=== PATIENT | male | born 1935 | race Caucasian/White ===

== ENCOUNTER 2017-03-05 15:45 | Emergency (ER) | payer MEDICARE ==
[~2017-03-05] VITALS: Ht 170.2 cm; Wt 63.5 kg
[~2017-03-05 15:45] MED LIST: ASPI325 PO; ASPI81CH PO; ASPI81EC PO; ATOR10 PO; CEPH250A PO; CEPH500 PO; CLOP75 PO; METO25ER PO; NIAC500 PO; Norco 5-325 Ta1 EACH PO; Norco 7.5-3251 EACH PO; Percocet 5-3251 EACH PO; Prednisone20 MG PO; RAMI2.5 PO; SIMV40 PO
[2017-03-05] MEDS ORDERED: Sulfamethoxazo1 EAC4 PO (17:40)
[2017-03-05] MEDS ORDERED: MORP20L (17:42)
== END 2017-03-05 17:56 | disposition home or self-care (01) ==
LOC: ER 15:45
DX: C76.0 Malignant neoplasm of head, face and neck (principal); L02.01 Cutaneous abscess of face
CPT/HCPCS: 87070; 87075; 87205; 99283